=== PATIENT | female | born 2005 | race African-American/Black ===

== ENCOUNTER 2023-11-22 11:26 | Inpatient (IN) | payer OTHER ==
--- NOTE | 2023-11-22 13:14 | US ---
EXAMINATION TYPE: US OB >= 14 wk fetus DATE OF EXAM: 11/22/2023 COMPARISON: None CLINICAL INDICATION: Female, 18 years old with history of Low ELLA; ELLA weight position TECHNIQUE: Transabdominal (TA) FINDINGS: GESTATIONAL AGE / DATING Physician Established: (39 weeks/0 days) EDC: 11/29/2023 Dates by LMP: (39 weeks/0 days) EDC: 11/29/2023 Dates by First Scan: No previous this is first scan Dates by Current Scan: (37 weeks/1 days) EDC: 12/12/2023 SURVEY IUP: Single PLACENTA: Anterior PREVIA: No Previa ELLA: 5.7 cm Borderline Oligohydramnios CERVICAL LENGTH (transabdominal: norm > 3.0cm Not well visualized. BIOMETRY PRESENTATION: Vertex LIE: Longitudinal BPD: 9.1 cm 36 weeks / 6 days HC: 31.60 cm 35 weeks / 4 days AC: 33.84 cm 37 weeks / 6 days FL: 7.43 cm 38 weeks / 1 days ESTIMATED WEIGHT IN GRAMS: 3206 grams ESTIMATED WEIGHT IN LBS/OZ: 7 lbs. 1 oz. WEIGHT PERCENTAGE BASED ON ESTABLISHED DATES: 97% HC/AC: 0.93 cm Normal FL/AC: 22% Normal HEART RATE: 143 bpm RHYTHM: Normal IMPRESSION: Single viable intrauterine with borderline oligohydramnios. Weight percentage based on esta blished dates is within the 97th percentile. [facility], , 11/22/2023 1:11 PM
--- NOTE | 2023-11-22 13:25 | P.HPOB ---
History of Present Illness H&P Date: 11/22/23 Chief Complaint: contractions 18 year old presents at 39 weeks 3 days with irreg contractions. Her cervix at [place] yesterday was fingertip and thick. Today she is 3/70/-2 and kacie every 5-10 minutes. heart tones cat 1. Labs yeaterday were normal but BPs elevated and ELLA was 4.6. today Ella was 5.7 and BPs are still elevated. Discussed GHTN and low fluid with patient and rec delivery. She was uncomfortable at [facility] [place] yesterday but feels comfortable here and would agree to induction. Review of Systems All systems: negative Constitutional: Denies chills, Denies fever Eyes: denies blurred vision, denies pain Ears, nose, mouth and throat: Denies headache, Denies sore throat Cardiovascular: Denies chest pain, Denies shortness of breath Respiratory: Denies cough Gastrointestinal: Denies abdominal pain, Denies diarrhea, Denies nausea, Denies vomiting Genitourinary: Denies dysuria, Denies hematuria Musculoskeletal: Denies myalgias Integumentary: Denies pruritus, Denies rash Neurological: Denies numbness, Denies weakness Psychiatric: Denies anxiety, Denies depression Endocrine: Denies fatigue, Denies weight change Past Medical History Past Medical History: No Reported History History of Any Multi-Drug Resistant Organisms: None Reported Past Surgical History: No Surgical Hx Reported Smoking Status: Never smoker Medications and Allergies Home Medications Medication Instructions Recorded Confirmed Type Aspirin [Adult Low Dose Aspirin EC] 81 mg PO DAILY 08/14/23 11/22/23 History Vit No.179/Iron/Folic 1 each PO DAILY 08/14/23 11/22/23 History [ Tablet] Allergies Allergy/AdvReac Type Severity Reaction Status Date / Time No Known Allergies Allergy Verified 11/22/23 11:37 Exam Osteopathic Statement: *. No significant issues noted on an osteopathic structural exam other than those noted in the History and Physical/Consult. Intake and Output 11/21/23 11/22/23 11/22/23 22:59 06:59 14:59 Other: Weight 116.573 kg Heart: Regular rate and rhythm Lungs: Clear to auscultation bilaterally Abdomen: Soft, nontender Extremities: Negative Homans sign Assessment and Plan (1) Gestational hypertension Current Visit: Yes Status: Acute Code(s): O13.9 - GESTATIONAL HTN W/O SIGNIFICANT PROTEINURIA, UNSP TRIMESTER SNOMED Code(s): 95015234 (2) 39 weeks gestation of Current Visit: Yes Status: Acute Code(s): Z3A.39 - 39 WEEKS GESTATION OF SNOMED Code(s): 23033649 Plan: 1. induction of labor with pitocin. pt refuses amniotomy at this time.
[2023-11-22] MEDS ORDERED: CARBOPROST TROMETHAMINE 250 MCG/ML 1 ML AMP IM PRN (14:41)
[2023-11-22] MEDS ORDERED: OXYTOCIN 10 UNIT/ML 1 ML VIAL IM PRN (14:41)
[2023-11-22] MEDS ORDERED: TERBUTALINE 1 MG/ML VIAL SQ PRN (14:41)
[2023-11-22] MEDS ORDERED: TRANEXAMIC 1,000 MG/100ML-NACL 1,000 MG in EMPTY BAG 1 BAG IV PRN (14:41)
[2023-11-22] MEDS ORDERED: miSOPROStoL 200 MCG TAB PO PRN (14:41)
[2023-11-22] MEDS ORDERED: miSOPROStoL 200 MCG TAB RECTAL PRN (14:41)
[2023-11-22] MEDS ORDERED: METHYLERGONOVINE 0.2 MG/ML 1 ML AMP IM PRN (14:41)
[2023-11-22] MEDS ORDERED: LIDOCAINE 0.5% (PF) 5 MG/ML (50 ML SDV) SQ PRN (14:41)
[2023-11-22] MEDS: LACTATED RINGERS 1,000 ML IV SCH (14:47)
[2023-11-22] MEDS ORDERED: fentaNYL (PF) 50 MCG/ML 5 ML AMP ONE (15:19)
[2023-11-22] MEDS ORDERED: ROPIVACAINE 5 MG/ML 30 ML VIAL ONE (15:19)
[2023-11-22] MEDS ORDERED: SODIUM CHLORIDE 0.9% 250 ML BAG ONE (15:19)
[2023-11-22 17:59] LABS: Basophils % (A) 0 %; Eosinophils # (A) 0.1 k/uL (0-0.7); Eosinophils % (A) 1 %; HCT 37.3 % (34.0-46.0); HGB 11.9 gm/dL (11.4-16.0); Lymphocytes # (A) 1.1 k/uL (1.0-4.8); Lymphocytes % (A) 13 %; MCH 30.3 pg (25.0-35.0); MCHC 31.8 g/dL (31.0-37.0); MCV 95.2 fL (80.0-100.0); Mean Platelet Volume 8.3; Monocytes # (A) 0.5 k/uL (0-1.0); Monocytes % (A) 6 %; Neutrophils # (A) 6.4 k/uL (1.3-7.7); Neutrophils % (A) 77 %; Platelet Count 275 k/uL (150-450); RBC 3.92 m/uL (3.80-5.40); RDW 13.3 % (11.5-15.5); WBC 8.3 k/uL (4.0-11.0)
[2023-11-23] MEDS: diphenhydrAMINE 50 MG/ML 1 ML VIAL IVP STA (03:13)
[2023-11-23] MEDS ORDERED: miSOPROStoL 200 MCG TAB PO PRN (03:49)
[2023-11-23] MEDS: CITRIC ACID-SODIUM CITRATE 15 ML CUP PO ONE (04:01)
[2023-11-23] MEDS ORDERED: NALOXONE 0.4 MG/ML 1 ML VIAL IV PRN (05:10)
[2023-11-23] MEDS ORDERED: ZOLPIDEM 5 MG TAB PO PRN (05:10)
[2023-11-23] MEDS ORDERED: METOCLOPRAMIDE 5 MG/ML 2 ML VIAL IVP PRN (05:10)
[2023-11-23] MEDS ORDERED: SIMETHICONE 80 MG CHEWABLE PO PRN (05:10)
[2023-11-23] MEDS ORDERED: diphenhydrAMINE 50 MG CAP PO PRN (05:10)
[2023-11-23] MEDS ORDERED: LANOLIN CREAM 1 GM TUBE TOPICAL PRN (05:10)
[2023-11-23] MEDS ORDERED: diphenhydrAMINE 50 MG/ML 1 ML VIAL IVP PRN ×2 (05:10)
[2023-11-23] MEDS ORDERED: diphenhydrAMINE 25 MG CAP PO PRN (05:10)
[2023-11-23] MEDS ORDERED: ONDANSETRON 4 MG/2 ML VIAL IVP PRN (05:10)
[2023-11-23] MEDS ORDERED: OXYTOCIN 30 UNITS/500 ML NS 30 UNIT in SALINE 1 500ML.BAG IV SCH (05:15)
[2023-11-23] MEDS: OXYTOCIN 30 UNITS/500 ML NS 30 UNIT in SALINE 1 500ML.BAG IV SCH (05:37)
[2023-11-23] MEDS: KETOROLAC 15 MG/ML 1 ML VIAL IVP SCH (09:32)
[2023-11-23] MEDS: SENNOSIDES-DOCUSATE SODIUM 1 EACH TAB PO SCH (09:36)
[2023-11-23] MEDS: ACETAMINOPHEN TAB 500 MG TAB PO SCH (13:30)
[2023-11-23] MEDS ORDERED: MORPHINE SULFATE (PF) 0.3 MG/0.3 ML SYR ONE (16:20)
[2023-11-23] MEDS ORDERED: MIDAZOLAM 2 MG/2 ML VIAL ONE (16:20)
[2023-11-23] MEDS ORDERED: OXYTOCIN 30 UNITS/500 ML NS BAG IV ONE (16:20)
[2023-11-23] MEDS ORDERED: fentaNYL (PF) 50 MCG/ML 2 ML AMP ONE (16:20)
[2023-11-23 17:11] LABS: Basophils % (A) 0 %; Eosinophils % (A) 0 %; HCT 26.1 % (34.0-46.0); Lymphocytes # (A) 1.5 k/uL (1.0-4.8); Lymphocytes % (A) 10 %; MCH 31.4 pg (25.0-35.0); MCHC 33.6 g/dL (31.0-37.0); MCV 93.6 fL (80.0-100.0); Monocytes # (A) 0.7 k/uL (0-1.0); Monocytes % (A) 5 %; Neutrophils # (A) 13.4 k/uL (1.3-7.7); Neutrophils % (A) 84 %; Platelet Count 213 k/uL (150-450); RBC 2.79 m/uL (3.80-5.40); RDW 13.9 % (11.5-15.5); WBC 16.1 k/uL (4.0-11.0)
[2023-11-23 17:32] LABS: HGB 8.7 gm/dL (11.4-16.0)
[2023-11-23] MEDS: LACTATED RINGERS 1,000 ML IV SCH (23:37)
[2023-11-24 06:45] LABS: Basophils % (A) 0 %; Eosinophils # (A) 0.1 k/uL (0-0.7); Eosinophils % (A) 1 %; HCT 23.1 % (34.0-46.0); HGB 7.9 gm/dL (11.4-16.0); Lymphocytes # (A) 2.2 k/uL (1.0-4.8); Lymphocytes % (A) 16 %; MCH 31.8 pg (25.0-35.0); MCHC 34.1 g/dL (31.0-37.0); MCV 93.3 fL (80.0-100.0); Mean Platelet Volume 8.8; Monocytes # (A) 0.7 k/uL (0-1.0); Monocytes % (A) 5 %; Neutrophils # (A) 10.3 k/uL (1.3-7.7); Neutrophils % (A) 75 %; Platelet Count 190 k/uL (150-450); RBC 2.47 m/uL (3.80-5.40); RDW 13.8 % (11.5-15.5); WBC 13.8 k/uL (4.0-11.0)
--- NOTE | 2023-11-24 07:04 | P.PN ---
Progress Note - Text Progress Note Date: 11/24/23 (505) Anesthesia Postop day 1 Subjective: Status Post section with Duramorph. Patient seen and examined. Doing well without complaint. VAS 0. No nausea or vomiting. Mild pruritus tolerable.. Denies fever. Gross lower extremity strength intact. Without apparent anesthetic complications. Objective: Vital signs reviewed Heart: Regular Rate Lungs: Good chest excursion Abdomen: Appears nondistended Assessment: Status post section with Duramorph postop day 1 Plan: 1. Continue current care with your medical management. Anticipated end to the duration of the Duramorph around surgery time today. You may see increased pain needs around this time. 2. This note was dictated using [employer] software. Please be advised there is a potential for misspellings or errors in riverine assault craft crewman.
[2023-11-24] MEDS: IBUPROFEN 800 MG TAB PO SCH (08:15)
[2023-11-25 00:04] VITALS: RESP 16
[2023-11-25 08:09] VITALS: BP 129/75; PULSE 102; TEMP 98.3
--- NOTE | 2023-11-25 11:23 | P.DS ---
Providers Date of admission: 11/22/23 13:16 Expected date of discharge: 11/25/23 Attending physician: Antionette Stevens Primary care physician: Antionette Stevens - Discharge Diagnosis(es) (1) Gestational hypertension Current Visit: Yes Status: Resolved (2) 39 weeks gestation of Current Visit: Yes Status: Resolved (3) Status post normal vaginal delivery Current Visit: Yes Status: Acute Hospital Course: 18 year old now presented in labor with elevated BPs. She underwent a normal vaginal delivery. pp course complicated. Pain controlled. Discharged home pp day number 2 in stable condition to follow up with me in 2 weeks. Plan - Discharge Summary New Discharge Prescriptions: New Ibuprofen [Motrin] 600 mg PO Q6HR PRN #30 tab PRN Reason: Mild Pain Or Fever >= 100.5 No Action Vit No.179/Iron/Folic [ Tablet] 1 each PO DAILY Aspirin [Adult Low Dose Aspirin EC] 81 mg PO DAILY Discharge Medication List Aspirin [Adult Low Dose Aspirin EC] 81 mg PO DAILY 08/14/23 [History] Vit No.179/Iron/Folic [ Tablet] 1 each PO DAILY 08/14/23 [History] Ibuprofen [Motrin] 600 mg PO Q6HR PRN #30 tab 11/25/23 [Rx] Follow up Appointment(s)/Referral(s): Antionette Stevens DO [Primary Care Provider] - 12/06/23 3:15 pm (Post appointment 01-04-2024 at 1:15pm Call [facility] to set up information.) Discharge Disposition: HOME SELF-CARE
== END 2023-11-25 14:15 | disposition home or self-care (01) | DRG 540 ==
LOC: FBPOP 11:26 → MERGE 13:16 → 4FBP 13:16
PROVIDERS: ADMIT Obstetrics & Gynecology; ATTEND Obstetrics & Gynecology
PROC: 10D00Z1 Extraction of Products of Conception, Low, Open Approach (ICD-10-PCS; principal; 2023-11-22)
DX: O13.4 Gestational [pregnancy-induced] hypertension without significant proteinuria, complicating childbirth (principal); L29.9 Pruritus, unspecified; Z37.0 Single live birth; Z3A.39 39 weeks gestation of pregnancy; Z79.82 Long term (current) use of aspirin
CPT/HCPCS: 59025; 76805; 85025; 86850; 86900; 86901; 99213

== ENCOUNTER 2023-12-05 20:14 | Emergency (ER) | payer OTHER ==
[2023-12-05 20:55] LABS: Appearance,Urine Turbid (Clear); Bilirubin,Urine Negative (Negative); Blood,Urine Moderate (Negative); Color,Urine Yellow; Glucose,Urine (UA) Negative (Negative); Ketones,Urine Trace (Negative); Leukocyte Esterase,Urine Large (Negative); Mucus,Urine Few /hpf; Nitrite,Urine Negative (Negative); PH, Urine 5.5 (5.0-8.0); Protein,Urine 1+ (Negative); RBC,Urine 174 /hpf (0-5); Specific Gravity,Urine 1.024 (1.001-1.035); Squamous Epithelial Cell,Urine 8 /hpf (0-4); Urobilinogen,Urine <2.0 mg/dL (<2.0); WBC,Urine >182 /hpf (0-5)
--- NOTE | 2023-12-05 21:11 | ED ---
General Adult HPI - General Source: patient Mode of arrival: ambulatory Limitations: no limitations - History of Present Illness MD Complaint: Headache Onset/Timin -: days(s) Severity scale (1-10): 5 Consistency: constant Associated Symptoms: fever/chills, nausea/vomiting Treatments Prior to Arrival: NSAID <Sy Kat - Last Filed: 12/05/23 21:09> <Armen Casas - Last Filed: 12/20/23 13:34> - General Chief complaint: Headache Stated complaint: Headache, Blurred Vision Time Seen by Provider: 12/05/23 20:26 - History of Present Illness Initial comments: Quick note: This is a 18-year-old female presenting with pressure-like headache (5 out of 10) x 3 days. Patient also endorses fever, congestion, nausea and light sensitivity. Patient denies history of migraines. Endorses use of ibuprofen and Tylenol with minimal relief. Patient denies chills, fatigue, body aches, chest pain, dyspnea, abdominal pain, vomiting, diarrhea, dizziness. (yS Kat) - Related Data Home Medications Medication Instructions Recorded Confirmed Aspirin [Adult Low Dose Aspirin EC] 81 mg PO DAILY 08/14/23 11/22/23 Vit No.179/Iron/Folic 1 each PO DAILY 08/14/23 11/22/23 [ Tablet] Previous Rx's Medication Instructions Recorded Ibuprofen [Motrin] 600 mg PO Q6HR PRN #30 tab 11/25/23 Allergies Allergy/AdvReac Type Severity Reaction Status Date / Time No Known Allergies Allergy Verified 12/06/23 07:54 Review of Systems ROS Other: All systems not noted in ROS Statement are negative. <Sy Kat - Last Filed: 12/05/23 21:09> ROS Other: All systems not noted in ROS Statement are negative. Constitutional: Denies: fever, chills, weakness Eyes: Denies: eye pain, vision change ENT: Reports: congestion. Denies: ear pain, hearing loss Respiratory: Denies: cough, dyspnea Cardiovascular: Denies: chest pain, palpitations, edema, syncope Gastrointestinal: Denies: abdominal pain, nausea, vomiting, diarrhea, constipation Genitourinary: Denies: dysuria, hematuria Musculoskeletal: Denies: back pain Skin: Denies: rash Neurological: Reports: headache. Denies: weakness, numbness, paresthesias, confusion, vertigo <Armen Casas - Last Filed: 12/20/23 13:34> ROS Statement: Those systems with pertinent positive or pertinent negative responses have been documented in the HPI. Past Medical History Past Medical History: No Reported History History of Any Multi-Drug Resistant Organisms: None Reported Past Surgical History: No Surgical Hx Reported Past Psychological History: No Psychological Hx Reported Smoking Status: Never smoker Past Alcohol Use History: None Reported Past Drug Use History: None Reported <Sy Kat - Last Filed: 12/05/23 21:09> - Past Family History Father Family Medical History: No Reported History <Armen Casas - Last Filed: 12/20/23 13:34> General Exam Limitations: no limitations <Sy Kat - Last Filed: 12/05/23 21:09> General appearance: alert, in no apparent distress Head exam: Present: atraumatic, normocephalic Eye exam: Present: normal appearance. Absent: scleral icterus, conjunctival injection ENT exam: Present: normal oropharynx Neck exam: Present: normal inspection, full ROM. Absent: tenderness, meningismus Respiratory exam: Present: normal lung sounds bilaterally. Absent: respiratory distress, wheezes, rales, rhonchi, stridor, accessory muscle use Cardiovascular Exam: Present: regular rate, normal rhythm, normal heart sounds. Absent: systolic murmur, diastolic murmur, rubs, gallop GI/Abdominal exam: Present: soft. Absent: distended, tenderness, guarding, rebound, rigid, mass Extremities exam: Present: normal inspection, normal capillary refill. Absent: pedal edema, calf tenderness Back exam: Present: normal inspection. Absent: CVA tenderness (R), CVA tenderness (L) Neurological exam: Present: alert, oriented X3, CN II-XII intact. Absent: motor sensory deficit Skin exam: Present: warm, dry, intact, normal color. Absent: rash <Armen Casas - Last Filed: 12/20/23 13:34> - General Exam Comments Initial Comments: Visual Physical Exam Vital signs reviewed General: Well-appearing, nontoxic, no acute distress. Head: Normocephalic, atraumatic Eyes: PERRLA, EOMI ENT: Airway patent Chest: Nonlabored breathing Skin: No visual rash, normal skin tone Neuro: Alert and oriented 3 Musculoskeletal: No gross abnormalities (Sy Kat) Course Vital Signs 12/05/23 12/05/23 12/06/23 20:22 22:21 01:22 Temperature 102.9 F H 100.8 F H 99.0 F Pulse Rate 112 H 104 H 98 Respiratory 20 18 18 Rate Blood Pressure 146/96 131/58 134/68 O2 Sat by Pulse 97 97 97 Oximetry Medical Decision Making <Sy Kat - Last Filed: 12/05/23 21:09> - Lab Data Result diagrams: 12/05/23 22:16 12/05/23 22:16 <Armen Casas - Last Filed: 12/20/23 13:34> - Medical Decision Making I completed the quick note portion of this chart signed ELVIS Quijano (Sy Kat) The patient's headache and the triage blood pressure, I discussed the case with Dr. Chambers, and treatment recommendations are incorporated. Was pt. sent in by a medical professional or institution (DANA Gunter, ACRYLIC FABRICATOR, urgent care, hospital, or assisted...) When possible be specific @ -[No] Did you speak to anyone other than the patient for history (EMS, parent, family, police, friend...)? What history was obtained from this source @ -[No] Did you review nursing and triage notes (agree or disagree)? Why? @ -[I reviewed and agree with nursing and triage notes] Were old charts reviewed (outside hosp., previous admission, EMS record, old EKG, old radiological studies, urgent care reports/EKG's, assisted records)? Report findings @ -[No old charts were reviewed] Differential Diagnosis (chest pain, altered mental status, abdominal pain women, abdominal pain men, vaginal bleeding, weakness, fever, dyspnea, syncope, headache, dizziness, GI bleed, back pain, seizure, CVA, palpatations, mental health, musculoskeletal)? @ -[Differential Headache: Migraine, tension, cluster, carbon monoxide, central venous thrombosis, pension karma temporal arteritis, acute closure glaucoma, intercranial hemorrhage, mastoiditis, sinusitis, head injury, preeclampsia, this is not meant to be an all-inclusive list. EKG interpreted by me (3pts min.). @ -[As above] X-rays interpreted by me (1pt min.). @ -[None done] CT interpreted by me (1pt min.). @ -[None done] U/S interpreted by me (1pt. min.). @ -[None done] What testing was considered but not performed or refused? (CT, X-rays, U/S, labs)? Why? @ -[None] What meds were considered but not given or refused? Why? @ -[None] Did you discuss the management of the patient with other professionals (professionals i.e. , PA, ACRYLIC FABRICATOR, lab, RT, psych nurse, oncology social worker, fish cutting machine operator, teacher, ship officer, case management assistant)? Give summary @ -[Discussed with key punch operator, see above Was smoking cessation discussed for >3mins.? @ -[No] Was critical care preformed (if so, how long)? @ -[No] Were there social determinants of health that impacted care today? How? (Homelessness, low income, unemployed, alcoholism, drug addiction, transportation, low edu. Level, literacy, decrease access to med. care, penitentiary, rehab)? @ -[No] Was there de-escalation of care discussed even if they declined (Discuss DNR or withdrawal of care, Hospice)? DNR status @ -[No] What co-morbidities impacted this encounter? (DM, HTN, Smoking, COPD, CAD, Cancer, CVA, ARF, Chemo, Hep., AIDS, mental health diagnosis, sleep apnea, morbid obesity)? @ -[None] Was patient admitted / discharged? Hospital course, mention meds given and route, prescriptions, significant lab abnormalities, going to OR and other pertinent info. @ -[Patient is a 18-year-old woman recently who presents with headache that she believes is sinus in nature, the patient did have 1 elevated blood pressure here and this was discussed with obstetrics. The patient's blood pressure has subsequently come down. There is no indication at this time that patient is preeclamptic. The patient is instructed to have close follow-up with key punch operator and return should there be any recurrence of her symptoms. Undiagnosed new problem with uncertain prognosis? @ -[No] Drug Therapy requiring intensive monitoring for toxicity (Heparin, Nitro, Insuli n, Cardizem)? @ -[No] Were any procedures done? @ -[No] Diagnosis/symptom? @ -[Acute sinusitis Acute headache Acute, or Chronic, or Acute on Chronic? @ -[Acute Uncomplicated (without systemic symptoms) or Complicated (systemic symptoms)? @ -[Uncomplicated Side effects of treatment? @ -[No] Exacerbation, Progression, or Severe Exacerbation? @ -[No] Poses a threat to life or bodily function? How? (Chest pain, [place], [place], pneumonia, PE, COPD, DKA, ARF, appy, cholecystitis, CVA, Diverticulitis, Homicidal, Suicidal, threat to staff... and all critical care pts) @ -[Very low likelihood at this point does require close follow-up (Armen Casas) - Lab Data Lab Results 12/05/23 12/05/23 12/05/23 Range/Units 20:25 20:27 22:16 WBC 10.8 (4.0-11.0) k/uL RBC 3.35 L (3.80-5.40) m/uL Hgb 10.2 L (11.4-16.0) gm/dL Hct 30.8 L (34.0-46.0) % MCV 92.0 (80.0-100.0) fL MCH 30.3 (25.0-35.0) pg MCHC 33.0 (31.0-37.0) g/dL RDW 13.7 (11.5-15.5) % Plt Count 593 H (150-450) k/uL MPV 8.1 Neutrophils % 74 % Lymphocytes % 15 % Monocytes % 4 % Eosinophils % 4 % Basophils % 0 % Neutrophils # 8.0 H (1.3-7.7) k/uL Lymphocytes # 1.7 (1.0-4.8) k/uL Monocytes # 0.4 (0-1.0) k/uL Eosinophils # 0.5 (0-0.7) k/uL Basophils # 0.0 (0-0.2) k/uL Hypochromasia Slight Poikilocytosis Slight Sodium (137-145) mmol/L Potassium (3.5-5.1) mmol/L Chloride (98-107) mmol/L Carbon Dioxide (22-30) mmol/L Anion Gap mmol/L BUN (7-17) mg/dL Creatinine (0.52-1.04) mg/dL Est GFR (CKD-EPI)AfAm (>60 ml/min/1.73 sqM) Est GFR (CKD-EPI)NonAf (>60 ml/min/1.73 sqM) Glucose (74-99) mg/dL Uric Acid (3.7-7.4) mg/dL Calcium (8.4-10.2) mg/dL Total Bilirubin (0.2-1.3) mg/dL AST (14-36) U/L ALT (4-34) U/L Alkaline Phosphatase (38-126) U/L Lactate Dehydrogenase (120-246) U/L Total Protein (6.3-8.2) g/dL Albumin (3.5-5.0) g/dL Urine Color Yellow Urine Appearance Turbid H (Clear) Urine pH 5.5 (5.0-8.0) Ur Specific [place] 1.024 (1.001-1.035) Urine Protein 1+ H (Negative) Urine Glucose (UA) Negative (Negative) Urine Ketones Trace H (Negative) Urine Blood Moderate H (Negative) Urine Nitrite Negative (Negative) Urine Bilirubin Negative (Negative) Urine Urobilinogen <2.0 (<2.0) mg/dL Ur Leukocyte Esterase Large H (Negative) Urine RBC 174 H (0-5) /hpf Urine WBC >182 H (0-5) /hpf Ur Squamous Epith Cells 8 H (0-4) /hpf Urine Mucus Few H (None) /hpf Influenza Type A (PCR) Not Detected (Not Detectd) Influenza Type B (PCR) Not Detected (Not Detectd) RSV (PCR) Not Detected (Not Detectd) SARS-CoV-2 (PCR) Not Detected (Not Detectd) 12/05/23 Range/Units 22:16 WBC (4.0-11.0) k/uL RBC (3.80-5.40) m/uL Hgb (11.4-16.0) gm/dL Hct (34.0-46.0) % MCV (80.0-100.0) fL MCH (25.0-35.0) pg MCHC (31.0-37.0) g/dL RDW (11.5-15.5) % Plt Count (150-450) k/uL MPV Neutrophils % % Lymphocytes % % Monocytes % % Eosinophils % % Basophils % % Neutrophils # (1.3-7.7) k/uL Lymphocytes # (1.0-4.8) k/uL Monocytes # (0-1.0) k/uL Eosinophils # (0-0.7) k/uL Basophils # (0-0.2) k/uL Hypochromasia Poikilocytosis Sodium 137 (137-145) mmol/L Potassium 4.2 (3.5-5.1) mmol/L Chloride 108 H (98-107) mmol/L Carbon Dioxide 21 L (22-30) mmol/L Anion Gap 8 mmol/L BUN 8 (7-17) mg/dL Creatinine 0.59 (0.52-1.04) mg/dL Est GFR (CKD-EPI)AfAm >90 (>60 ml/min/1.73 sqM) Est GFR (CKD-EPI)NonAf >90 (>60 ml/min/1.73 sqM) Glucose 87 (74-99) mg/dL Uric Acid 6.1 (3.7-7.4) mg/dL Calcium 9.4 (8.4-10.2) mg/dL Total Bilirubin 0.5 (0.2-1.3) mg/dL AST 24 (14-36) U/L ALT 15 (4-34) U/L Alkaline Phosphatase 152 H (38-126) U/L Lactate Dehydrogenase 265 H (120-246) U/L Total Protein 7.2 (6.3-8.2) g/dL Albumin 4.2 (3.5-5.0) g/dL Urine Color Urine Appearance (Clear) Urine pH (5.0-8.0) Ur Specific [place] (1.001-1.035) Urine Protein (Negative) Urine Glucose (UA) (Negative) Urine Ketones (Negative) Urine Blood (Negative) Urine Nitrite (Negative) Urine Bilirubin (Negative) Urine Urobilinogen (<2.0) mg/dL Ur Leukocyte Esterase (Negative) Urine RBC (0-5) /hpf Urine WBC (0-5) /hpf Ur Squamous Epith Cells (0-4) /hpf Urine Mucus (None) /hpf Influenza Type A (PCR) (Not Detectd) Influenza Type B (PCR) (Not Detectd) RSV (PCR) (Not Detectd) SARS-CoV-2 (PCR) (Not Detectd) Disposition <Sy Kat - Last Filed: 12/05/23 21:09> Is patient prescribed a controlled substance at d/c from ED?: No <Armen Casas - Last Filed: 12/20/23 13:34> Clinical Impression: Headache, Acute sinusitis Disposition: HOME SELF-CARE Condition: Good Instructions (If sedation given, give patient instructions): Acute Headache (ED) Additional Instructions: Discussed, give Dr. Stevens's office a call and let them know that you are seen and how you are feeling. Return to the emergency department if your symptoms return. Referrals: Ovi Young MD [Primary Care Provider] - 1-2 days
[2023-12-05] MEDS: ACETAMINOPHEN TAB 500 MG TAB PO STA (21:54)
[2023-12-05 22:23] VITALS: RESP 18
[2023-12-05 22:42] LABS: Basophils % (A) 0 %; Eosinophils # (A) 0.5 k/uL (0-0.7); Eosinophils % (A) 4 %; HCT 30.8 % (34.0-46.0); HGB 10.2 gm/dL (11.4-16.0); Hypochromasia Slight; Lymphocytes # (A) 1.7 k/uL (1.0-4.8); Lymphocytes % (A) 15 %; MCH 30.3 pg (25.0-35.0); Mean Platelet Volume 8.1; Monocytes # (A) 0.4 k/uL (0-1.0); Monocytes % (A) 4 %; Neutrophils % (A) 74 %; Platelet Count 593 k/uL (150-450); Poikilocytosis Slight; RBC 3.35 m/uL (3.80-5.40); RDW 13.7 % (11.5-15.5); WBC 10.8 k/uL (4.0-11.0)
[2023-12-05 23:03] LABS: ALT 15 U/L (4-34); AST 24 U/L (14-36); African American GFR (CKD) >90 (>60 ml/min/1.73 sqM); Albumin 4.2 g/dL (3.5-5.0); Alkaline Phosphatase 152 U/L (38-126); Anion Gap 8 mmol/L; Blood Urea Nitrogen 8 mg/dL (7-17); Calcium 9.4 mg/dL (8.4-10.2); Carbon Dioxide 21 mmol/L (22-30); Chloride 108 mmol/L (98-107); Glucose 87 mg/dL (74-99); LDH 265 U/L (120-246); Non-African American GFR(CKD) >90 (>60 ml/min/1.73 sqM); Potassium 4.2 mmol/L (3.5-5.1); Sodium 137 mmol/L (137-145); Total Bilirubin 0.5 mg/dL (0.2-1.3); Total Protein 7.2 g/dL (6.3-8.2); Uric Acid 6.1 mg/dL (3.7-7.4)
[2023-12-05] MEDS: SODIUM CHLORIDE 0.9% 1,000 ML IV ONE (23:12)
[2023-12-05] MEDS: METOCLOPRAMIDE 5 MG/ML 2 ML VIAL IVP STA (23:13)
[2023-12-06 01:24] VITALS: BP 134/68; PULSE 98; TEMP 99
== END 2023-12-06 01:27 | disposition home or self-care (01) ==
LOC: EC 20:14
DX: J01.90 Acute sinusitis, unspecified (principal)
CPT/HCPCS: 36415; 80053; 83615; 84550; 85025; 81001; 87086; 87636; 99284; 96365; 96375; 96361; J2765; J0696